=== PATIENT | female | born 1975 | race Caucasian/White ===

== ENCOUNTER 2019-01-21 03:10 | Emergency (ER) | payer SELFPAY ==
--- NOTE | 2019-01-21 04:00 | ED Physician Documentation ---
PD HPI ABD PAIN - Stated complaint Stated Complaint: ABD PAIN - Chief complaint Chief Complaint: Abd Pain - History obtained from History obtained from: Family - History of Present Illness Timing - onset: Today Timing - duration: Hours (2) Timing - details: Abrupt onset Associated symptoms: No: Fever, Vomiting Recently seen: Not recently seen - Additional information Additional information: This a 43-year-old woman with Down syndrome who presents with her father complaints that she seems to be having a stomachache. Patient was living with her mother up until November when her mom she then went to live with a sister and has been living with her dad for the past month. Dad says she has a routine that she is sleeps during the day and is up at night and tonight he noticed her coming out of the bathroom around 2 AM and she seemed to be in pain. She is been in there a long time. She is essentially nonverbal and had not really been complaining of anything but when dad asked if she had abdominal pain she did shake her head yes. He does not know if she is been having bowel movements or not. She has not been vomiting to his awareness. He is not even sure if he ate dinner he does provide food for her. She has not been running a fever. Any further history is impossible to obtain because the patient is unable to provide history other than to shake her head yes that she was having some discomfort. Review of Systems Unable to obtain: Other (Patient is nonverbal essentially) PD PAST MEDICAL HISTORY - Past Medical History Past Medical History: Yes GI: Chronic constipation - Past Surgical History Past Surgical History: No - Present Medications Home Medications: Ambulatory Orders Medication Instructions Recorded Confirmed Simethicone [Gas Relief] 80 mg PO TID PRN #30 tab.chew 01/21/19 - Allergies Allergies/Adverse Reactions: Allergies Allergy/AdvReac Type Severity Reaction Status Date / Time No Known Drug Allergies Allergy Verified 01/21/19 03:18 - Social History Does the pt smoke?: No Smoking Status: Never smoker Does the pt drink ETOH?: No Does the pt have substance abuse?: No PD ED PE NORMAL - Vitals Vital signs reviewed: Yes - General General: Alert and oriented X 3, No acute distress, Well developed/nourished - HEENT HEENT: Atraumatic, PERRL, Moist mucous membranes - Neck Neck: No adenopathy, Thyroid normal - Cardiac Cardiac: RRR, No murmur - Respiratory Respiratory: No respiratory distress, Clear bilaterally - Abdomen Abdomen: Normal bowel sounds, Soft, Non tender, Non distended, Other (Patient was giggling when I was pushing on her abdomen.) - Rectal Rectal: Other (There is no stool in the rectal vault.) - Derm Derm: Normal color, Warm and dry, No rash - Extremities Extremities: No edema - Neuro Neuro: Other (She is moving extremities normally and follows commands.) Results - Vitals Vitals: Vital Signs - 24 hr 01/21/19 01/21/19 03:12 05:18 Temperature 36.8 C Heart Rate 78 63 Respiratory 19 17 Rate Blood Pressure 121/95 H 105/67 O2 Saturation 100 100 Oxygen O2 Source Room air - Labs Labs: Laboratory Tests 01/21/19 01/21/19 01/21/19 03:36 03:36 03:56 WBC 5.4 RBC 4.06 L Hgb 13.1 Hct 39.3 MCV 96.8 MCH 32.3 H MCHC 33.3 RDW 13.7 Plt Count 198 MPV 9.2 Neut # (Auto) 4.2 Lymph # (Auto) 0.7 L [place] # (Auto) 0.3 Eos # (Auto) 0.0 Baso # (Auto) 0.1 Absolute Nucleated RBC 0.00 Nucleated RBC % 0.0 Sodium Potassium Chloride Carbon Dioxide Anion Gap BUN Creatinine Estimated GFR (MDRD) Glucose Calcium Total Bilirubin AST ALT Alkaline Phosphatase Total Protein Albumin Globulin Albumin/Globulin Ratio Lipase Urine Color YELLOW Urine Clarity CLEAR Urine pH 5.0 Ur Specific [place] >=1.030 H >1.030 Urine Protein TRACE Urine Glucose (UA) NEGATIVE Urine Ketones NEGATIVE Urine Occult Blood TRACE-LYSE Urine Nitrite NEGATIVE Urine Bilirubin NEGATIVE Urine Urobilinogen 0.2 (NORMAL) Ur Leukocyte Esterase SMALL H Urine RBC 0-5 Urine WBC 0-3 Ur Squamous Epith Cells FEW Squamous Urine Bacteria Few Ur Microscopic Review INDICATED Urine Culture Comments INDICATED Urine HCG, Qual NEGATIVE 01/21/19 03:56 WBC RBC Hgb Hct MCV MCH MCHC RDW Plt Count MPV Neut # (Auto) Lymph # (Auto) [place] # (Auto) Eos # (Auto) Baso # (Auto) Absolute Nucleated RBC Nucleated RBC % Sodium 142 Potassium 3.9 Chloride 104 Carbon Dioxide 27 Anion Gap 11.0 BUN 16 Creatinine 0.8 Estimated GFR (MDRD) 78 L Glucose 100 Calcium 9.3 Total Bilirubin 0.4 AST 32 ALT 17 Alkaline Phosphatase 67 Total Protein 7.8 Albumin 3.8 Globulin 4.0 Albumin/Globulin Ratio 1.0 Lipase 32 Urine Color Urine Clarity Urine pH Ur Specific [place] Urine Protein Urine Glucose (UA) Urine Ketones Urine Occult Blood Urine Nitrite Urine Bilirubin Urine Urobilinogen Ur Leukocyte Esterase Urine RBC Urine WBC Ur Squamous Epith Cells Urine Bacteria Ur Microscopic Review Urine Culture Comments Urine HCG, Qual - Rads (name of study) abd xrays Radiology: EMP read contemporaneously (There is extensive gas noted in the large and small bowel but no air-fluid levels. There is not a significant amount of stool loading.), See rad report PD MEDICAL DECISION MAKING - ED course Complexity details: reviewed results, re-evaluated patient, d/w patient, d/w family ED course: White blood cell count is normal. Her urinalysis is negative and she is not . Abdominal x-ray showed extensive amount of gas but minimal stool. Discussed with dad that a trial of simethicone and watching her diet to try and avoid a lot of processed food or gas-forming foods. Sure there is been a big transition with her losing her primary caregiver and moving in with dad and that is probably contributing somewhat to her symptomatology. Departure - Departure Disposition: 01 Home, Self Care Clinical Impression: Abdominal pain Qualifiers: Abdominal location: generalized Qualified Code(s): R10.84 - Generalized abdominal pain Condition: Good Instructions: ED Abdominal Pain Unkn Cause Follow-Up: [facility] [Provider Group] your,provider [Other] Prescriptions: Simethicone [Gas Relief] 80 mg PO TID PRN #30 tab.chew PRN Reason: Abdominal Pain Comments: Try to watch her diet to avoid a lot of processed foods or gas-forming foods. May use the simethicone for discomfort to try and alleviate some of the gas discomfort. Follow-up with the primary care provider if her symptoms persist.
[2019-01-21 04:02] LABS: BASOPHILS # (AUTO) 0.1 10^3/uL (0.0-0.1); BASOPHILS % (AUTO) 1.9 %; EOSINOPHILS % (AUTO) 0.6 %; HGB - HEMOGLOBIN 13.1 g/dL (12.0-16.0); LYMPHOCYTES # (AUTO) 0.7 10^3/uL (1.5-3.5); LYMPHOCYTES % (AUTO) 13.8 %; MEAN CORPUSCULAR HEMOGLOBIN 32.3 pg (27.0-31.0); MEAN CORPUSCULAR HGB CONC 33.3 g/dL (32.0-36.0); MEAN CORPUSCULAR VOLUME 96.8 fL (81.0-99.0); MEAN PLATELET VOLUME 9.2 fL (7.9-10.8); MONOCYTES # (AUTO) 0.3 10^3/uL (0.0-1.0); MONOCYTES % (AUTO) 5.2 %; NEUTROPHILS # (AUTO) 4.2 10^3/uL (1.5-6.6); NEUTROPHILS % (AUTO) 78.1 %; PLT - PLATELET COUNT 198 10^3/uL (130-450); RED BLOOD COUNT 4.06 10^6/uL (4.20-5.40); RED CELL DISTRIBUTION WIDTH 13.7 % (12.0-15.0); WHITE BLOOD COUNT 5.4 x10^3/uL (4.8-10.8)
[2019-01-21 04:06] LABS: BILIRUBIN,URINE NEGATIVE (NEGATIVE); GLUCOSE, URINE (UA) NEGATIVE (NEGATIVE); KETONES,URINE (UA) NEGATIVE (NEGATIVE); LEUKOCYTE ESTERASE, URINE SMALL (NEGATIVE); NITRITE,URINE NEGATIVE (NEGATIVE); OCCULT BLOOD,URINE TRACE-LYSE (NEGATIVE); PROTEIN,URINE TRACE mg/dL (NEGATIVE); UROBILINOGEN,URINE 0.2 (NORMAL) E.U./dL (NORMAL)
[2019-01-21 04:15] LABS: ALBUMIN 3.8 g/dL (3.2-5.5); BILIRUBIN,TOTAL 0.4 mg/dL (0.2-1.0); CALCIUM 9.3 mg/dL (8.5-10.3); CREATININE 0.8 mg/dL (0.4-1.0); TOTAL PROTEIN 7.8 g/dL (6.7-8.2)
[2019-01-21 04:18] LABS: BACTERIA,URINE Few /HPF (None Seen); CLARITY,URINE CLEAR (CLEAR); RBC,URINE 0-5 /HPF (0-5); SQUAMOUS EPITHELIAL CELL,UR FEW Squamous (<= Few)
[2019-01-21 04:51] LABS: HCG UR QUAL NEGATIVE
--- NOTE | 2019-01-21 04:57 | XRAY Report ---
Reason: abdominal pain Procedure Date: 01/21/2019 Accession Number: [id number] / [id number] Procedure: XR - Abdomen 1 View X-Ray CPT Code: 88607 FULL RESULT: EXAM: ABDOMEN RADIOGRAPHY EXAM DATE: 01/21/2019 04:52 AM. CLINICAL HISTORY: Abdominal pain. COMPARISON: None. TECHNIQUE: 1 view. FINDINGS: Bowel Gas Pattern: Gas in nondistended loops of small and large bowel. Other: No abnormal calcifications overlying either renal shadow. IMPRESSION: Normal 1-view abdomen x-ray. [facility]
[2019-01-21 05:19] VITALS: BP 105/67
--- NOTE | 2019-01-21 05:58 | XRAY Report ---
Reason: abdominal pain Procedure Date: 01/21/2019 Accession Number: [id number] / [id number] Procedure: XR - Abdomen 1 View X-Ray CPT Code: 98170 FULL RESULT: EXAM: ABDOMEN RADIOGRAPHY EXAM DATE: 01/21/2019 05:47 AM. CLINICAL HISTORY: Abdominal pain. COMPARISON: ABDOMEN 1 VIEW 01/21/2019 4:46 AM. TECHNIQUE: Upright view. FINDINGS: Bowel Gas Pattern: Within normal limits. No dilated loops. Other: No free intraperitoneal gas. The lung bases are unremarkable. IMPRESSION: Normal upright portable abdomen. No evidence of perforation. RAD[facility]
== END 2019-01-21 06:02 | disposition home or self-care (01) ==
LOC: ED 03:10
DX: R10.84 Generalized abdominal pain (principal); R14.0 Abdominal distension (gaseous); Q90.9 Down syndrome, unspecified
CPT/HCPCS: 36415; 74018; 80053; 81001; 81003; 81025; 83690; 85025; 87077; 87086; 87181; 99281; 99283

== ENCOUNTER 2019-02-03 22:12 | Outpatient (CLI) | payer SELFPAY | END 2019-02-03 22:13 | disposition EMS.NT | LOC: EMS 22:12 | PROVIDERS: ATTEND Surgery | DX: R56.9 Unspecified convulsions (principal) ==

== ENCOUNTER 2019-06-30 14:55 | Outpatient (CLI) | payer SELFPAY | END 2019-06-30 14:56 | disposition EMS.NT | LOC: EMS 14:55 | PROVIDERS: ATTEND Surgery | DX: R56.9 Unspecified convulsions (principal) ==